=== PATIENT | male | born 1980 | race Caucasian/White ===

== ENCOUNTER 2020-08-22 13:22 | Emergency (ER) | payer OTHER, SELFPAY ==
--- NOTE | ~2020-08-22 | XR_ITS ---
EXAMINATION: XR abdomen/kub 1V EXAM DATE: 08/22/2020 13:53 INDICATION: lower mid abd. pain . TECHNIQUE: Frontal projection of the upper abdomen, frontal projection lower abdomen/pelvis for inter pretation. There is no prior study for comparison. FINDINGS: There is expected amount of colonic stool and gas. No small bowel dilation, nonobstructiv e bowel gas pattern. There are no suspicious calcifications identified. There is no organomegaly suspected. The bones are unremarkable. IMPRESSION: Unremarkable abdomen x-ray exam. Reviewed, dictated and finalized at location B. E CLERK CHECKER
--- NOTE | 2020-08-22 13:23 | ED.ABDPAIN ---
HPI - Abdominal Pain General Chief Complaint: Abdominal Pain Stated Complaint: abdominal pain Time Seen by Provider: 08/22/20 13:35 Source: patient and RN notes reviewed Mode of arrival: ambulatory Limitations: no limitations History of Present Illness HPI narrative: 40-year-old male with no significant medical history presents with concern for 2-day history of abdominal pain. Reports low mid abdominal pain that started on Tuesday. Reports on Tuesday he had a fever of 100.5, body aches. Reports those symptoms have resolved. He denies diarrhea, vomiting. Reports decreased appetite, decreased oral intake. He denies fever, general malaise. Reports he has a feeling as if he needs to have a bowel movement, and is unable to have a productive bowel movement, reports only small amounts of stool. Reports using cannabis which slightly improved his symptoms MD elicited complaint: abdominal pain Related Data Home Medications Medication Instructions Recorded Confirmed No Home Medications 08/22/20 08/22/20 Allergies Allergy/AdvReac Type Severity Reaction Status Date / Time No Known Allergies Allergy Verified 08/22/20 13:33 Review of Systems Review of Systems: Narrative: CONSTITUTIONAL: Denies malaise, chills, sweats, or current fever. ENT: Denies rhinorrhea, congestion, sinus pain, otalgia or sore throat. CARDIOVASCULAR: Denies chest pain, palpitations, or edema. RESPIRATORY: Denies cough or dyspnea. GASTROINTESTINAL: Reports mid low abdominal pain, decreased appetite, decreased oral intake. Denies nausea, vomiting, diarrhea, bloody, or mucous stools. GENITOURINARY: Denies dysuria or hematuria. Denies groin pain, scrotal pain, scrotal swelling or erythema SKIN: Denies bruising MUSCULOSKELETAL: Denies back pain or current myalgia. NEUROLOGIC: Denies headache. All systems reviewed & are unremarkable except as noted in HPI and below PMFSH Comments At time of signature, agree with nursing past medical, surgical, social and family history. There is no relevant family history pertinent to the presenting complaint Exam Narrative: Exam Narrative: GENERAL: Well-appearing, well-nourished, and in no acute distress. HEAD: Normocephalic, atraumatic. EYES: PERRLA, conjunctivae clear ENT: Mucous membranes moist. NECK: Supple. No lymphadenopathy CHEST: Clear to auscultation, lung sounds equal speaks in full sentences. No respiratory distress. HEART: Regular rate and rhythm. ABDOMEN: Mild lower left and right tenderness to palpation. Soft, flat, nondistended. No guarding, rebound tenderness, or rigid. No pulsatilla masses. Bowel sounds present in all four quadrants. No organomegaly. Negative Murry?s sign. No periumbilical tenderness. No Supra public tenderness or distension. Good femoral pulses bilaterally. No hernia noted. No scars or surface trauma. SKIN: Warm, dry, no rash. NEURO: Alert and oriented x3. PSYCH: Normal mood and affect Course Course Emergency Course: Discussed with patient limited diagnostic capability of [facility], offered transfer to emergency department for further evaluation. Patient refuses transfer to emergency department. Reports he will take medications to relieve constipation and will make an appointment with a primary care provider for follow-up. Understands reasons to go to the emergency room if symptoms change or worsen. Patient is aware of diagnosis, understands and agrees to treatment plan. Anticipatory guidance given. Patient agrees to follow-up as directed and is aware of reasons to seek care at the emergency department. Portions of this record may have been created with voice recognition software Vital Signs Vital signs: Vital Signs Temperature 97.7 F 08/22/20 13:31 Pulse Rate 70 08/22/20 13:31 Respiratory Rate 16 08/22/20 13:31 Blood Pressure 129/74 08/22/20 13:31 Pulse Oximetry 100 08/22/20 13:31 Temperature 97.7 F 08/22/20 13:31 Pulse Rate 70 08/22/20 13:
[2020-08-22 13:31] VITALS: BP 129/74; PULSE 70; RESP 16; TEMP 36.5; O2SAT 100
== END 2020-08-22 14:26 | disposition home or self-care (01) ==
PROVIDERS: Emergency Provider Nurse Practitioner
DX: R10.31 Right lower quadrant pain (principal); R10.32 Left lower quadrant pain
CPT/HCPCS: 74018; 81003; 99213; G0463

== ENCOUNTER 2023-10-05 12:24 | Emergency (ER) | payer OTHER, SELFPAY ==
--- NOTE | ~2023-10-05 | XR_ITS ---
EXAMINATION: XR wrist LT min 3V DATE: 10/05/2023 13:09 INDICATION: Left wrist pain post injury one month prior TECHNIQUE: Posteroanterior, ulnar deviation, oblique, and lateral views of the left wrist were obtain ed. COMPARISON: 01/24/2014 FINDINGS: Alignment is normal. No fracture. Joint spaces are normal. Soft tissues are unremarkable. IMPRESSION: 1. Negative left wrist radiographs. Reviewed, dictated and finalized at location A. OTION WRITER
[2023-10-05 12:27] VITALS: BP 109/73; PULSE 63; RESP 16; TEMP 35.8; O2SAT 100
--- NOTE | 2023-10-05 12:55 | ED.UPPEXIN ---
HPI - Extremity Injury (Upper) General Chief Complaint: Extremity Injury, Upper Stated Complaint: L WRIST PAIN/R ELBOW PAIN Time Seen by Provider: 10/05/23 12:55 Source: patient Mode of arrival: ambulatory Limitations: no limitations History of Present Illness HPI narrative: 43 y/o male presented for c/o right elbow pain and left wrist pain for 1 month after fall. States wrist feels weak, and he has left wrist pain only when pushing himself up from a chair for example. Pain to pinky side of the wrist with pressure. Right elbow pain is described as burning, and feels weak. Unable to tolerate lifting gallon of milk. Denies swelling, bruising or deformity. Takes occasional ibuprofen. Related Data Allergies Allergy/AdvReac Type Severity Reaction Status Date / Time No Known Allergies Allergy Verified 01/06/22 13:21 Review of Systems Review of Systems: CONSTITUTIONAL: Denies body aches, fever, chills EYES: Denies visual changes ENT: Denies rhinorrhea, congestion CARDIOVASCULAR: Denies chest pain, palpitations, or edema. RESPIRATORY: Denies cough or dyspnea. GASTROINTESTINAL: Denies abdominal pain, nausea, vomiting, or diarrhea. SKIN: Denies rash, itching, or wounds. MUSCULOSKELETAL: Reports right elbow and left wrist pain denies back pain, or myalgia. NEUROLOGIC: Denies headache, numbness, tingling, or weakness. All systems reviewed & are unremarkable except as noted in HPI and below PMFSH Past Medical History Medical History (Updated 10/05/23 @ 13:47 by Nargis Pulido, ALLEN) No pertinent past medical history Comments At time of signature, I have reviewed and agree with nursing past medical, surgical, social and family history unless otherwise noted. Please see nursing chart for further information. There is no relevant family history pertinent to the presenting complaint Exam Narrative: GENERAL: Well-appearing CHEST: Speaks in full sentences. No respiratory distress. HEART: Regular rate and rhythm. Normal and equal peripheral pulses. EXTREMITIES: Bilateral upper extremities have normal strength and sensation, normal range of motion with flexion/extension/rotation of wrist and elbows, without pain with movement. No swelling or ecchymosis, No point tenderness. No open wounds or obvious deformity; alignment normal, pulse palpable and equal bilaterally, skin warm, dry, pink. Capillary refill less than 3 seconds. SKIN: Warm, dry, no rash. NEURO: Alert and oriented x3. PSYCH: Normal mood and affect Course Course Emergency Course: Patient is aware of diagnosis, understands and agrees to treatment plan. Anticipatory guidance given. Patient agrees to follow-up as directed and is aware of reasons to seek care at the emergency department. Portions of this record may have been created with voice recognition software Level of Care: Express Care Visit Vital Signs Vital signs: Vital Signs Temperature 96.5 F L 10/05/23 12:27 Pulse Rate 63 10/05/23 12:27 Respiratory Rate 16 10/05/23 12:27 Blood Pressure 109/73 10/05/23 12:27 Pulse Oximetry 100 10/05/23 12:27 Temperature 96.5 F L 10/05/23 12:27 Pulse Rate 63 10/05/23 12:27 Respiratory Rate 16 10/05/23 12:27 Blood Pressure 109/73 10/05/23 12:27 Pulse Oximetry 100 10/05/23 12:27 Reviewed MDM - Extremity Injury (Upper) MDM Narrative Medical decision making narrative: Results of x-ray reviewed with patient. He declined x-ray right elbow. LUIS applied to left wrist. No concern for tendon or nerve injury. Patient is treatable on an outpatient basis. Differential Diagnosis Differential diagnosis: Likely sprain and strain of wrist, fracture of wrist and other (osteoarthritis, elbow dislocation, septic bursitis, epicondylitis, biceps tendon rupture) Imaging Data Radiologist's impression: Patient: Vargas Bonilla . : 1980 MR#: [id number] Age: 43 Acct:[id number] Loc: [facility]? ? ADM Date: 10/05/23Attending Dr:
== END 2023-10-05 13:54 | disposition home or self-care (01) ==
PROVIDERS: Emergency Provider Nurse Practitioner Family
DX: S63.502A Unspecified sprain of left wrist, initial encounter (principal); S66.912A Strain of unspecified muscle, fascia and tendon at wrist and hand level, left hand, initial encounter; W19.XXXA Unspecified fall, initial encounter; M25.521 Pain in right elbow
CPT/HCPCS: 73110; 99213; G0463

== ENCOUNTER 2025-02-08 01:26 | Day surgery (SDC) | payer OTHER, SELFPAY ==
[2025-01-28 13:10] VITALS: BMI 24.2
--- OUTSIDE RECORDS SUMMARY | 2025-02-08 01:29 | XMS_ITS | Clinical Summary ---
Author Organization [facility] My eStore App Address [address] [place] [address] Care Team Providers Care Non Clinical Advisor Name Role Phone Vic Rubin MD Primary Care Provider [phone] [facility],non-owned Affiliates and Associated Physician Practices is amultiple site organization consisting of ambulatory clinics and hospital sitesin [place], [place], [place] and [place]. This disclosure is being madepursuant to the Care Everywhere program and may not contain all information available regarding this patient. Last updated 18.[facility] [employer] Allergies No known active allergies Medications * Be aware that medications may not be up to date on this document. Alwaysverify current medications with the patient. No known medications Active Problems Problem Noted Date Diagnosed Date Sciatica of left side 03/22/2018 Family history of colon cancer 03/22/2018 Family History Medical History Relation Name Comments Diabetes - Type 1 Father Hypertension Father Arthritis - Rheumatoid Mother Lupus Mother Relation Name Status Comments Father Mother Social History Tobacco Use Types Packs/Day Years Used Date Smoking Tobacco: Former Smokeless Tobacco: Never Tobacco Cessation:Ready to Q uit: Yes; Counseling Given: Yes Comments:Vaping Alcohol Use Standard Drinks/Week Comments No 0 (1 standard drink = 0.6 oz pur e alcohol) Sex and Gender Information Value Date Recorded Sex Assigned at Not on file Legal Sex Male 7:52 AM CDT Gender Identity Not on file Sexual Orientation Not on file 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 Not on file Not on file Not on file Last Filed Vital Signs Vital Sign Reading Time Taken Comments Blood Pressure 122/72 07/06/2020 10:55 AM CDT Pulse 72 07/06/2020 10:55 AM CDT Temperature 37.2 C (99 F) 07/06/2020 10:55 AM CDT Respiratory Rate 18 07/06/2020 10:55 AM CDT Oxygen Saturation 98% 07/06/2020 10:55 AM CDT Inhaled Oxygen Concentration - - Weight 90.7 kg (200 lb) 07/06/2020 10:55 AM CDT Height 177.8 cm (5' 10 ) 07/06/2020 10:55 AM CDT Body Mass Index 28.7 07/06/2020 10:55 AM CDT Plan of Treatment Health Maintenance Due Date Last Done Comments COLOGUARD (AGES 45-75) - COL ON CA SCREENING 1980 COLON MONITORING 1978 COLONOSCOPY - COLON CA SCREENING 1978 CT COLONOGRAPHY - COLON CA SCREENING 1978 Colorectal Cancer Screening 1978 FIT - COLON CA SCREENING 1978 FLEX SIG - COLON CA SCREENING 1978 LIPID TESTING 1978 HIV SCREENING 1993 HEPATITIS C SCREENING 07/13/1996 DTAP/TDAP/TD VACCINES (1 - Tdap) 1997 HEPATITIS B VACCINE (1 of 3 - 19+ 3-dose series) 1997 SCREENING FOR DIABETES 01/01/2020 COVID-19 VACCINE (1 - 2023-2 5 season) 2024 DEPRESSION SCREENING 10/10/2024 INFLUENZA VACCINE (Season Ended) 2025 ZOSTER VACCINE (1 of 2) 2028 HIB VACCINE Aged Out No longer eligi ble based on patient's age to complete this topic HPV VACCINE Aged Out No longer eligi ble based on patient's age to complete this topic MENINGOCOCCAL (Group B) VACC INE SHARED DECISION-MAKING Aged Out No longer eligibl e based on patient's age to complete this topic MENINGOCOCCAL GROUPS A/C/Y/W VACCINE Aged Out No longer eligible b ased on patient's age to complete this topic PNEUMOCOCCAL VACCINE Aged Out No long er eligible based on patient's age to complete this topic Insurance [facility] [facility] Address: [id number] [place] [address] Care Teams Non Clinical Advisor Relationship Specialty Start Date End Date Vic Rubin MD PCP - General Family Medicine 03/22/18
[2025-02-08 11:32] VITALS: BP 97/63; PULSE 67; RESP 18; TEMP 36.4; O2SAT 98
--- NOTE | 2025-02-08 11:47 | SUR.PREOP ---
Patient drank all 64 ox of prep at 0900 yesterday morning after he had eggs. Dr Bryson spoke directly with patient and it was determined to cancel his procedure and reschedule.
== END 2025-02-08 11:45 | disposition home or self-care (01) ==
PROVIDERS: PCP Emergency Medicine; Referring Provider Emergency Medicine; Visit Provider Internal Medicine Gastroenterology
PROC: 0DJD8ZZ Inspection of Lower Intestinal Tract, Via Natural or Artificial Opening Endoscopic (ICD-10-PCS; CPT 45378; principal; 2025-02-08 13:00)
DX: Z12.11 Encounter for screening for malignant neoplasm of colon (principal); Z53.09 Procedure and treatment not carried out because of other contraindication
CPT/HCPCS: 99211; G0463